=== PATIENT | male | born 1965 | race Caucasian/White ===

== ENCOUNTER → 2021-01-20 | Outpatient (CLI) | payer OTHER ==
--- NOTE | 2021-01-26 00:42 | ECWPNPC ---
PATIENT NAME: ROSS ROYAL : 1965 GENDER: MALE VISIT DATE: 01/20/2021 DISCHARGE DATE: 01/20/21 1329 VISIT LOCKED DATE TIME: PHYSICIAN: VIKASH ALEJANDRA RESOURCE: VIKASH ALEJANDRA REASON FOR APPOINTMENT 1. CERVICAL INJECTIONS HISTORY OF PRESENT ILLNESS DEPRESSION SCREENING: PHQ-2 (2015 EDITION) LITTLE INTEREST OR PLEASURE IN DOING THINGS?NOT AT ALL FEELING DOWN, DEPRESSED, OR HOPELESS?NOT AT ALL TOTAL SCORE0 GENERAL: 55-YEAR-OLD GENTLEMAN WITH A HISTORY OF CERVICAL TRAUMA FOLLOWING A WORK INJURY WHEN CONSTRUCTION MATERIAL FELL ON HIS HEAD IN 2018 REQUIRING EMERGENT SURGERY. PATIENT HAD A POSTERIOR INSTRUMENTED FUSION C3-C6 WITH DECOMPRESSION [place] [address] JORDAN. THIS IS A REFERRAL FROM [facility] TO EVALUATE FOR INJECTION THERAPY. ACCOMPANIED IN THE EXAM ROOM WITH HIS SISTER. CURRENTLY ATTENDING PHYSICAL THERAPY. ALSO WILL BE ATTENDING MASSAGE THERAPY. HE FEELS HE IS DOING WELL IN REGARDS TO PAIN CONTROL FOR NECK AND ARM PAIN. DISCUSSED INJECTION THERAPY TO INCLUDE TRIGGER POINT INJECTIONS, CERVICAL EPIDURAL STEROID INJECTIONS AND CERVICAL FACET BLOCKS. WE DISCUSSED POTENTIAL RISKS AND BENEFITS. USING [id number] PAIN MEDICATION PERIODICALLY WITH RELIEF. DENIES BOWEL OR BLADDER INCONTINENCE. DENIES WEAKNESS IN THE EXTREMITIES . - - -. FALL RISK SCREENING: SCREENING : NO FALLS REPORTED IN THE LAST YEAR , : NO FALLS REPORTED IN THE LAST YEAR. PAIN SCREENING: PATIENT HAS A COMPLAINT OF ACUTE OR CHRONIC PAIN :YES LOCATION OF PAIN:NECK INTENSITY OF PAIN (SCALE OF 1 TO 10):6 WHAT DOES YOUR PAIN FEEL LIKE:SHARP, THROBBING, SORE DURATION:INTERMITTENT PAIN IS INCREASED BY:ACTIVITIES, PROLONGED STANDING PAIN IS DECREASED BY:OTHERS HEAT NURSING NOTE: - - -. PAIN CENTER INTAKE QUESTIONS: DO YOU HAVE A HISTORY OF MRSA? :NO DO YOU TAKE A BLOOD THINNERS? :NO DO YOU HAVE ANY BLEEDING DISORDERS? :NO ANY NEW NUMBNESS OR WEAKNESS IN YOUR LEGS OR ARMS? :NO ANY PACEMAKER,DEFIBRILLATOR, OR DORSAL COLUMN STIMULATOR? :NO DO YOU HAVE ANY RASHES OR OPEN SORES? :NO ARE YOU ALLERGIC TO IV DYE? :NO ARE YOU DIABETIC? :NO ANY NEW PROBLEMS WITH YOUR MEDICATIONS? :NO HAVE YOU RECEIVED A VACCINE IN THE PAST 30 DAYS? :NO DO YOU PLAN TO RECEIVE A VACCINE IN THE NEXT 21 DAYS? :NO DO YOU NEED ANY PRESCRIPTION? :NO DO YOU TAKE ANY IMMUNOSUPPRESSIVE MEDICATIONS? :NO IS THERE A CHANCE YOU COULD BE ? :NO ARE YOU BREAST FEEDING? :NO CURRENT MEDICATIONS TAKING ATORVASTATIN CALCIUM 40 MG TABLET 1 TABLET ORALLY ONCE A DAY TAKING VITAMIN D 50 MCG (2000 UT) CAPSULE 1 CAPSULE ORALLY ONCE A DAY TAKING CALCIUM 280 MG TABLET DIRECTED ORALLY ONCD A DAY TAKING ACETAMINOPHEN 500 MG TABLET 2 TABLETS ORALLY TWICE A DAY MEDICATION LIST REVIEWED AND RECONCILED WITH THE PATIENT PAST MEDICAL HISTORY MIXED HYPERLIPIDEMIA VITAMIN D DEFICIENCY STATUS POST INJURY TO C-SPINE SMOKER ALLERGIES N.K.D.A. SURGICAL HISTORY NECK SURGERY FAMILY HISTORY FATHER: MOTHER: SIBLINGS: 4 BROTHER(S) , 6 SISTER(S) - HEALTHY. MOTHER AND FATHER BOTH HTN, ONE BROTHER IS . SOCIAL HISTORY GENERAL: TOBACCO USE ARE YOU A:CURRENT SMOKER ARE YOU INTERESTED IN QUITTING?READY TO QUIT PREVIOUS QUIT ATTEMPTS?NO. COUNSELED THE PATIENT ON TOBACCO USE, CESSATION [id number]/20/2021 HOW SOON AFTER YOU WAKE UP DO YOU SMOKE YOUR FIRST CIGARETTE?31-60 MIN HOW OFTEN DO YOU SMOKE CIGARETTES?EVERY DAY PATIENT COUNSELED ON THE DANGERS OF TOBACCO USE AND URGED TO QUIT:10/08/2020 LATEX QUESTIONNAIRE LATEX ALLERGY : HAVE YOU EVER DEVELOPED ANY TYPE OF REACTION AFTER HANDLING LATEX PRODUCTS SUCH RUBBER GLOVES, CONDOMS, DIAPHRAGMS, BALLOONS, SOCKS, OR UNDERWEAR?NO LATEX ALLERGY : HAVE YOU EVER DEVELOPED ANY TYPE OF REACTION DURING OR AFTER DENTAL APPOINTMENT, VAGINAL/RECTAL EXAMINATION, SURGICAL PROCEDURE, OR ANY OTHER EXPOSURE?NO LATEX RISK : HAVE YOU EVER HAD ANY DIFFICULTY BREATHING OR HIVES AFTER EATING OR HANDLING ANY FRUITS, OR VEGETABLES; SUCH KIWI, BANANAS, STONE FRUITS, OR CHESTNUTSNO LATEX RISK : DO YOU HAVE A PREVIOUS PERSONAL HISTORY OF MORE THAN NINE SURGERIES, SPINA BIFIDA, OR REPEATED CATHERIZATIONS? NO LATEX RISK : ARE YOU FREQUENTLY EXPOSED TO LATEX PRODUCTS IN YOUR OCCUPATION?NO DATE ASKED : 01/20/2021 ALCOHOL USE: YES, SOMETIMES. ALCOHOL SCREENING DID YOU HAVE A DRINK CONTAINING ALCOHOL IN THE PAST YEAR?YES HOW OFTEN DID YOU HAVE SIX OR MORE DRINKS ON ONE OCCASION IN THE PAST YEAR?NEVER (0 POINTS) HOW MANY DRINKS DID YOU HAVE ON A TYPICAL DAY WHEN YOU WERE DRINKING IN THE PAST YEAR?1 OR 2 (0 POINTS) HOW OFTEN DID YOU HAVE A DRINK CONTAINING ALCOHOL IN THE PAST YEAR?NEVER (0 POINTS) POINTS0 INTERPRETATIONNEGATIVE RECREATIONAL DRUG USE DRUG USE?NO CAFFEINE CAFFEINE USE?YES 2-3 DAILY YAZIDI YAZIDI NO JUDAISM BELIEFS THAT WOULD IMPACT HEALTH CARE. LANGUAGE LANGUAGES SPOKEN:[place] LEARNING BARRIERS / SPECIAL NEEDS CHANGE FROM LAST VISIT?NO BARRIERS TO LEARNING?NO HEARING IMPAIRED?NO VISION IMPAIRED?YES : READING COGNITIVELY IMPAIRED?NO READINESS TO LEARN?YES LEARNING PREFERENCES?NO LEARNING CAPABILITIES PRESENT?YES EMOTIONAL BARRIERS?NO SPECIAL DEVICES?NO CEMENT MASON APPRENTICE NEEDED?NO SISTER HOSPITALIZATION/MAJOR DIAGNOSTIC PROCEDURE SURGERY RELATED 2018 REVIEW OF SYSTEMS CONSTITUTIONAL: ANY RECENT FEVER NO . CHILLS NO . WEIGHT CHANGE OF UNKNOWN REASONS NO . GASTROENTEROLOGY: NEW UNEXPLAINABLE CHANGES IN BOWEL CONTROL NO . CONSTIPATION NO . GENITOURINARY: ANY NEW CHANGE IN BLADDER CONTROL? NO . NEUROLOGY: NEW ONSET DIZZINESS OR NEUROLOGICAL CHANGES NOT MENTIONED NO . NEW NUMBNESS OR PAIN PATTERNS NOT MENTIONED AND PERTINENT TO TODAY'S VISIT NO . CARDIOLOGY: NEW CHEST PRESSURE NO . PATIENT DENIES NO . RESPIRATORY: UNEXPLAINABLE COUGH NO . NEW SHORTNESS OF BREATH NO . VITAL SIGNS WT 199 LBS, HT 66 IN, BMI 32.12 INDEX, BP 166/97 MM HG, HR 101 /MIN, RR 18 /MIN, TEMP 98 F, OXYGEN SAT % 94, SAFE IN ENV? (Y/N) YEST.FAHAD CHOWDARY " PATIENT STATED THAT HE HAD 4 CUPS OF COFFEE ". EXAMINATION GENERAL EXAMINATION: GENERALNO ACUTE DISTRESS, WELL NOURISHED AND HYDRATED. PSYCHAPPROPRIATE MOOD AND AFFECT . FACE:UNREMARKABLE. NECK:NO LYMPHADENOPATHY, SUPPLE. LUNGS:CLEAR TO AUSCULTATION BILATERALLY, NO WHEEZES, RHONCHI, RALES. HEART:NO MURMURS, REGULAR RATE AND RHYTHM. MUSCULOSKELETAL: MUSCLE STRENGTH TESTING 5/5 BILATERAL UPPER/LOWER EXTREMITIES. CERVICAL: WELL HEALED SURGICAL INCISION. NONTENDER WITH PALPATION. NO TRIGGER POINTS NOTED. ASSESSMENTS CERVICAL POST-LAMINECTOMY SYNDROME - M96.1 (PRIMARY) TREATMENT CERVICAL POST-LAMINECTOMY SYNDROME NOTES: CONTINUE WITH PHYSICAL THERAPY AND HOME EXERCISES AND STRETCHING. CALL PAIN CENTER IF PAIN BECOMES OUT OF CONTROL TO CONSIDER INJECTION THERAPY. PROCEDURES PN WORKMANS' COMP OPINION IN YOUR OPINION, WAS THE INCIDENT THAT THE PATIENT DESCRIBED THE COMPETENT MEDICAL CAUSE OF THIS INJURY/ILLNESS? YES ARE THE PATIENT'S COMPLAINTS CONSISTENT WITH HIS/HER HISTORY OF THE INJURY/ILLNESS? YES IS THE PATIENT'S HISTORY OF THE INJURY/ILLNESS CONSISTENT WITH YOUR OBJECTIVE FINDING? YES WHAT IS THE PERCENTAGE OF TEMPORARY IMPAIRMENT? MODERATE TO MARKED = 66.7% IS THE PATIENT WORKING? NO DOCTOR ON SITE: MADIE RAWLS MD PROCEDURE CODES FA211 ESTABILISHED PATIENT [facility] CHARGE DISPOSITION & COMMUNICATION FOLLOW UP PT WILL CALL FOR F/U IF NECESSARY (REASON: NECK PAIN/WORKMANS COMP) ELECTRONICALLY SIGNED BY JUANITA AQUINO ON 01/25/2021 AT 09:12 AM EDT DISCLAIMER : THIS IS A VISIT SUMMARY EXTRACTED FROM THE [employer] CHART. IT IS NOT A COPY OF THE [employer] PROGRESS NOTE. [place]
== END ==
LOC: M PAIN 13:00
PROVIDERS: ATTEND Nurse Practitioner Family
DX: M96.1 Postlaminectomy syndrome, not elsewhere classified (principal); E55.9 Vitamin D deficiency, unspecified; F17.200 Nicotine dependence, unspecified, uncomplicated; Z79.899 Other long term (current) drug therapy

== ENCOUNTER → 2021-09-15 | Outpatient (CLI) | payer OTHER | LOC: M PLAIMG 13:58 | PROVIDERS: ATTEND Physician Assistant | DX: M96.1 Postlaminectomy syndrome, not elsewhere classified (principal) ==